=== PATIENT | male | born 1935 | race Caucasian/White ===

== ENCOUNTER 2017-09-28 16:23 | Emergency (ER) | payer OTHER ==
[2017-09-28 16:38] VITALS: BMI 24.4
--- NOTE | 2017-09-28 16:39 | PDOC ---
Rapid Medical Evaluation Chief Complaint: Blood Pressure Problem Time Seen by Provider: 09/28/17 16:34 Medical Evaluation: 09/28/17 16:34 The patient presents with a chief complaint of: High blood pressure 210/[address] Mcmahan's office. Sent for evaluation. Takes BP medications and took the medications twice today. States has been taking robitussin DM for cough. Has cough, and pleuritic chest tightness with coughing. Denies headache I have performed a brief in-person evaluation of this patient; Pertinent physical exam findings. BP 208/80, CTAB, RRR I have ordered the following: CBC, CMP, Cardiac enzymes, EKG, PT/INR, cxr The patient will proceed to the ED for further evaluation.
[2017-09-28 17:08] LABS: BASO % 0.5 % (0-2.0); EOS % 3.3 % (0-4.5); HEMOGLOBIN 12.5 GM/dL (11.7-16.9); LYMPH % 26.7 % (8-40); MCH 30.5 pg (25.7-33.7); MCHC 32.9 g/dl (32.0-35.9); MEAN CELL VOLUME 92.6 fl (80-96); MEAN PLT VOLUME 8.6 fl (7.5-11.1); MONO % 9.2 % (3.8-10.2); NEUT % 60.3 % (42.8-82.8); PLATELET COUNT 171 K/MM3 (134-434); RBC 4.11 M/mm3 (4.00-5.60); WHITE BLOOD COUNT 4.8 K/mm3 (4.0-10.0)
--- NOTE | 2017-09-28 17:31 | PDOC ---
History of Present Illness - General Chief Complaint: Blood Pressure Problem Stated Complaint: PCP SENT/BLOOD PRESSURE PROBLEM Time Seen by Provider: 09/28/17 16:34 History Source: Patient Exam Limitations: No Limitations - History of Present Illness Initial Comments: 09/28/17 18:25 82M with pmh of HTN on (Hydralazine and carvedilol) and DM2 presents High blood pressure 210/[address] Mcmahan's office. Sent for evaluation.Took BP medications twice today. States has been taking robitussin DM for cough. Has cough, and pleuritic chest tightness with coughing. Denies headache, leg swelling, palpitations. Past History - Past Medical History Allergies/Adverse Reactions: Allergies Allergy/AdvReac Type Severity Reaction Status Date / Time No Known Allergies Allergy Verified 09/28/17 16:38 Home Medications: Ambulatory Orders Unobtainable [Unobtainable] 09/28/17 COPD: No Diabetes: Yes HTN: Yes Other medical history: CKD IV - Surgical History Cholecystectomy: Yes - Suicide/Smoking/Psychosocial Hx Smoking History: Never smoked Information on smoking cessation initiated: No Hx Alcohol Use: No Drug/Substance Use Hx: No Substance Use Type: None Review of Systems - Review of Systems Able to Perform ROS?: Yes Constitutional: No: Symptoms Reported HEENTM: No: Symptoms Reported Respiratory: Yes: Cough Cardiac (ROS): No: Symptoms Reported ABD/GI: No: Symptoms Reported : No: Symptoms Reported Musculoskeletal: No: Symptoms Reported Integumentary: No: Symptoms Reported Neurological: No: Symptoms reported All Other Systems: Reviewed and Negative *Physical Exam - Vital Signs Last Vital Signs Temp Pulse Resp BP Pulse Ox 97.6 F 51 L 19 209/88 99 09/28/17 16:35 09/28/17 16:35 09/28/17 16:35 09/28/17 16:35 09/28/17 16:35 - Physical Exam General Appearance: Yes: Nourished, Appropriately Dressed. No: Apparent Distress HEENT: positive: EOMI, MANJU, Normal ENT Inspection Neck: negative: Tender Respiratory/Chest: positive: Lungs Clear, Normal Breath Sounds. negative: Chest Tender, Respiratory Distress Cardiovascular: positive: Regular Rhythm, S1, S2, Bradycardia Gastrointestinal/Abdominal: positive: Normal Bowel Sounds, Flat, Soft. negative : Tender Extremity: positive: Delayed Capillary Refill Integumentary: positive: Normal Color, Dry Neurologic: positive: Fully Oriented, Alert, Normal Mood/Affect, Normal Response ED Treatment Course - LABORATORY CBC & Chemistry Diagram: 09/28/17 16:56 09/28/17 16:56 Medical Decision Making - Medical Decision Making 09/28/17 19:[address] Mcmahan's office for evaluation of HTN. CBC, CMP, UA, EKG CXR. EKG: Sinus rhythm with 1st degree heart block. Troponins 0.07 Given Norvasc for Blood pressure control. Will Reevaluate. 09/28/17 19:24 BP now down to 175/80. Trops to be redrawn at 9pm *DC/Admit/Observation/Transfer Diagnosis at time of Disposition: Episode of hypertension - Referrals Referrals: Marck Mcmahan MD [Primary Care Provider] - - Patient Instructions - Post Discharge Activity
[2017-09-28 17:34] LABS: INR 1.04 (0.82-1.09); PROTHROMBIN TIME (PATIENT) 11.8 SEC (9.98-11.88)
[2017-09-28 17:51] LABS: ALBUMIN 3.7 g/dl (3.4-5.0); ANION GAP 5 (8-16); BILIRUBIN,TOTAL 0.7 mg/dL (0.2-1.0); BLOOD UREA NITROGEN 34 mg/dL (7-18); CALCIUM 11.1 mg/dL (8.5-10.1); CHLORIDE 106 mmol/L (98-107); CO2 30 mmol/L (21-32); CREATININE 2.2 mg/dL (0.7-1.3); GLUCOSE,RANDOM 87 mg/dL (74-106); POTASSIUM 4.4 mmol/L (3.5-5.1); SGOT/AST 17 U/L (15-37); SGPT/ALT 16 U/L (12-78); SODIUM 141 mmol/L (136-145); TOT PROT 7.5 g/dl (6.4-8.2)
[2017-09-28 17:52] LABS: ALK PHOS 77 U/L (45-117)
[2017-09-28] MEDS ORDERED: amLODIPine BESYLATE 5 MG TABLET (FP) PO ONE (18:21)
[2017-09-28] MEDS ORDERED: amLODIPine BESYLATE 5 MG TABLET (FP) ONE (18:30)
[2017-09-28 23:14] VITALS: BP 144/96; PULSE 69; TEMP 97.8
--- NOTE | 2017-09-28 23:47 | PDOC ---
Attending Attestation - Resident Resident Name: Jb Schmid - HPI HPI: 09/28/17 23:46 pt sent from PCP because of elevated blood pressure -no chest pain, no shortness of breath,no vomiting,no headache - Physicial Exam PE: 09/28/17 23:47 82 yo male in no acute distress 09/29/17 00:34 head ncat neck supple lungs cta b/l cvs [id number] abd soft ext no edema;,no cellulitis neuro alert, sl unsteady gait the a family stated is not new skin warm,dry - Medical Decision Making 09/29/17 00:35 pt's blood pressure decreased denies any chest pain,shortness of breath, vomiting,headache IMP HTn plan pt told to continue his BP medications as directed by his regular physician 09/29/17 00:38
--- NOTE | 2017-09-29 00:40 | PDOC ---
*Physical Exam - Vital Signs Last Vital Signs Temp Pulse Resp BP Pulse Ox 97.8 F 69 18 144/96 96 09/28/17 23:13 09/28/17 23:13 09/28/17 23:13 09/28/17 23:13 09/28/17 23:13 ED Treatment Course - LABORATORY CBC & Chemistry Diagram: 09/28/17 16:56 09/28/17 16:56 - ADDITIONAL ORDERS Additional order review: Laboratory Results 09/28/17 09/28/17 09/28/17 21:34 16:56 16:56 PT with INR 11.80 INR 1.04 Sodium 141 Potassium 4.4 Chloride 106 Carbon Dioxide 30 Anion Gap 5 L BUN 34 H Creatinine 2.2 H Creat Clearance w eGFR 28.87 Random Glucose 87 Calcium 11.1 H Total Bilirubin 0.7 AST 17 ALT 16 Alkaline Phosphatase 77 Creatine Kinase 126 Troponin I 0.08 H Total Protein 7.5 Albumin 3.7 09/28/17 16:56 PT with INR INR Sodium Potassium Chloride Carbon Dioxide Anion Gap BUN Creatinine Creat Clearance w eGFR Random Glucose Calcium Total Bilirubin AST ALT Alkaline Phosphatase Creatine Kinase 132 Troponin I 0.07 H Total Protein Albumin 09/28/17 16:56 RBC 4.11 MCV 92.6 MCHC 32.9 RDW 13.0 MPV 8.6 Neutrophils % 60.3 Lymphocytes % 26.7 Monocytes % 9.2 Eosinophils % 3.3 Basophils % 0.5 - Medications Given in the ED: ED Medications Discontinued Medications Generic Name Dose Route Start Last Admin Trade Name Freq PRN Reason Stop Dose Admin Amlodipine Besylate 5 mg 09/28/17 18:21 09/28/17 18:34 Norvasc - PO 09/28/17 18:22 5 mg ONCE ONE Administration *DC/Admit/Observation/Transfer Diagnosis at time of Disposition: Episode of hypertension - Discharge Dispostion Disposition: HOME Condition at time of disposition: Stable - Referrals Referrals: Marck Mcmahan MD [Primary Care Provider] - - Patient Instructions Printed Discharge Instructions: DI for High Blood Pressure Additional Instructions: please take your blood pressure medications as prescribed by your doctor Please see your regular doctors for further evaluation - Post Discharge Activity
--- NOTE | 2017-09-29 09:30 | EKG ---
Test Reason : Blood Pressure : / mmHG Vent. Rate : 059 BPM Atrial Rate : 059 BPM P-R Int : 262 ms QRS Dur : 092 ms QT Int : 408 ms P-R-T Axes : 103 -32 054 degrees QTc Int : 403 ms SINUS BRADYCARDIA WITH SINUS ARRHYTHMIA WITH 1ST DEGREE A-V BLOCK LEFT AXIS DEVIATION SEPTAL INFARCT , AGE UNDETERMINED ABNORMAL ECG NO PREVIOUS ECGS AVAILABLE Confirmed by [place] VILLEGAS, JOSE M ([id number]) on 09/29/2017 9:30:47 AM Referred By: Confirmed By:JOSE M MCPHERSON MD
== END 2017-09-29 00:49 | disposition home or self-care (01) ==
LOC: JER 16:23
DX: I10 Essential (primary) hypertension (principal)
CPT/HCPCS: 36415; 71046-TC; 80053; 82550; 84484; 85025; 85610; 93005; 93010; 99282-25